=== PATIENT | female | born 2000 | race Hispanic/Latino ===

== ENCOUNTER 2023-02-09 05:01 | Emergency (ER) | payer OTHER, MEDICAID ==
[~2023-02-09] VITALS: Ht 152.4 cm; Wt 73.5 kg
[2023-02-09] MEDS ORDERED: LACTULOSE 20 GM/30 ML UDCUP PO ONE (06:00)
[2023-02-09] MEDS ORDERED: MORPHINE 2 MG SYG IVP ONE (06:00)
[2023-02-09] MEDS ORDERED: ONDANSETRON 4MG INJ IVP ONE (06:00)
[2023-02-09 06:07] VITALS: BP 97/50
[2023-02-09] MEDS ORDERED: LACT20PA6 PO (09:54)
== END 2023-02-09 10:50 | disposition home or self-care (01) ==
LOC: EDH 05:01
DX: K59.00 Constipation, unspecified (principal)
CPT/HCPCS: 99284; 96374; 96375; J2405